=== PATIENT | female | born 2000 | race Hispanic/Latino ===

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

== ENCOUNTER 2022-05-20 15:38 | Emergency (ER) | payer MEDICAID, OTHER ==
[~2022-05-20] VITALS: Ht 152.4 cm; Wt 77.1 kg
[2022-05-20] MEDS ORDERED: NAPR-1192 PO (17:29)
[2022-05-20] MEDS ORDERED: NAPROXEN 250 MG TAB PO ONE (17:30)
[2022-05-20 17:38] VITALS: BP 128/78
== END 2022-05-20 17:39 | disposition home or self-care (01) ==
LOC: EDH 15:38
DX: N60.19 Diffuse cystic mastopathy of unspecified breast (principal)
CPT/HCPCS: 99282